=== PATIENT | male | born 1970 | race Caucasian/White ===

== ENCOUNTER 2019-12-13 08:57 | Day surgery (SDC) | payer BC, OTHER ==
[2019-12-10 09:08] VITALS: BMI 31.7
[2019-12-13] MEDS ORDERED: LIDOCAINE HCL/PF 2% SDV 5ML VIAL ONE (09:46)
[2019-12-13] MEDS ORDERED: PROPOFOL 20 ML ONE ×3 (09:47)
[2019-12-13 14:47] VITALS: TEMP 97.6
[2019-12-13 14:51] VITALS: BP 107/64; PULSE 55
--- NOTE | 2019-12-16 14:58 | PATH ---
Surgical Pathology Report Patient Name: CHAPITO MCBRIDE [facility]. Rec. #: [id number] /Age/Gender: 1970 (Age: 49) / M Account: [id number] Location: [facility] Taken: 12/13/2019 Received: 12/13/2019 Reported: 12/16/2019 Physicians: Macario Carter M.D. Specimen(s) Received POLYP LEFT COLON Clinical History Family history of colon cancer, rectal bleeding Postoperative diagnosis: Colon polyp Final Diagnosis LEFT COLON, POLYP, BIOPSY: TUBULAR ADENOMA. Electronically Signed Wendy Mcallister M.D. Gross Description Received in formalin, labeled "biopsy polyp left colon" is a canales, irregular portion of soft tissue measuring 0.2 cm. in greatest dimension. The specimen is submitted in toto in one cassette. 12/14/2019 [facility]12/14/2019
== END 2019-12-13 11:30 | disposition home or self-care (01) ==
LOC: FASU-ENDO 08:57
PROVIDERS: ATTEND Internal Medicine Gastroenterology
PROC: 0DBM8ZX Excision of Descending Colon, Via Natural or Artificial Opening Endoscopic, Diagnostic (ICD-10-PCS; principal; 2019-12-13 10:21)
DX: Z12.11 Encounter for screening for malignant neoplasm of colon (principal); Z80.0 Family history of malignant neoplasm of digestive organs; D12.4 Benign neoplasm of descending colon
CPT/HCPCS: 88305-TC

== ENCOUNTER 2020-06-18 16:44 | Emergency (ER) | payer BC, OTHER ==
[2020-06-18 17:06] VITALS: BP 136/90; PULSE 78; TEMP 99.4; BMI 32.5
== END 2020-06-18 17:14 | disposition home or self-care (01) ==
LOC: FER 16:44
DX: S61.216A Laceration without foreign body of right little finger without damage to nail, initial encounter (principal)
CPT/HCPCS: 99282-25